=== PATIENT | female | born 1965 | race Caucasian/White ===

== ENCOUNTER → 2019-09-14 | Outpatient (CLI) | payer BC ==
[~2019-09-14] MED LIST: GADOBENATE DIMEGLUMINE 1 ML IV ONE
[2019-09-14 09:29] LABS: BLOOD UREA NITROGEN 18 mg/dL (7-26); BUN/CREATININE RATIO 19 (6-25); CREATININE, SERUM 0.93 mg/dL (0.57-1.11); EST GLOMERULAR FILTRATION RATE > 60 ML/MIN (60-)
--- NOTE | 2019-09-14 13:10 | Diagnostic Imaging Report ---
Examination: MRI BRAIN WITHOUT AND WITH CONTRAST History: Dizziness. Comparison studies: None Technique: Pre-contrast: Sagittal T2; axial T1, GRE or SWI, DWI, T2 FLAIR Post-contrast: axial, sagittal and coronal T1. Intravenous contrast: 20 mL MultiHance. Findings: Scalp: No abnormal signal. No masses. Bone marrow: Normal in signal intensity. Brain volume: Adequate for age. No volume loss. Ventricles: Asymmetric prominence of the right lateral ventricle. No hydrocephalus. Parenchyma: A single punctate area of signal abnormality in the right inferior frontal gyrus juxtacortical white matter. No masses, hemorrhage, or acute or chronic vascular insults. Extra-axial spaces: No lesion, fluid collection or hematoma. Enhancement: No abnormal enhancement. Suprasellar and sellar region: No abnormalities. Craniocervical junction: No abnormalities. The foramen magnum is patent. No Chiari malformations. Vessels: Normal flow-voids in the arteries and sinuses. Additional findings:None. IMPRESSION: No intracranial abnormalities to explain patient's symptoms. Signed by: Dr. Lubna Young M.D. on 09/14/2019 1:07 PM
== END ==
LOC: MRI 08:38
PROVIDERS: ATTEND Psychiatry & Neurology Neurology
DX: R42 Dizziness and giddiness (principal)
CPT/HCPCS: 36415; 70553; 82565; 84520; A9577

== ENCOUNTER 2019-11-30 07:34 | Observation (INO) | payer BC ==
[~2019-11-30] VITALS: Ht 175.3 cm; Wt 103.4 kg
--- OUTSIDE RECORDS SUMMARY | 2019-11-30 07:37 | XMS REPORT ---
Author Author [facility] Address Unknown Phone Unavailable Care Team Providers Care [employer] Name Role Phone DELFINA MCCANN Unavailable Unavailable Candis ORDOÑEZ Unavailable Unavailable Problems This patient has no known problems. Allergies, Adverse Reactions, Alerts This patient has no known allergies or adverse reactions. Medications This patient has no known medications. Encounters Start Date/Time End Date/Time Encounter Type Admission Type Attending Clinicians Care Facility Care Department Encounter ID 2018-11-06 15:30:00 2019-02-06 23:59:00 Outpatient C THANIA ORDOÑEZ [facility] [id number] Results Test Description Test Time Test Comments Text Results Atomic Results Result Comments MRI BRAIN WOW 2019-09-14 13:02:00 [place] [address] Patient Name: ELIAS METZ MR #: [id number] : 1965 Age/Sex: 54/F Req #: [id number] Adm Physician: Ordered by: DELFINA MCCANN MD Report #: [id number] Location: MRI Room/Bed: Procedure: [id number] MRI/MRI BRAIN WOW Exam Date: Exam Time: REPORT STATUS: Signed Examination: MRI BRAIN WITHOUT AND WITH CONTRAST History: Dizziness. Co mparison studies: None Technique: Pre-contrast: Sagittal T2; axial T1, GRE or SWI, DWI, T2 FLAIR Post-contrast: axial, sagittal and coronal T1. Intravenous contrast: 20 mL MultiHance. Findings: Scalp: No abnormal signal. No masses. Bone marrow: Normal in signal intensity. Brain volume: Adequate for age. No volume loss. Ventricles: Asymmetric prominence of the right lateral ventricle. No hydrocephalus. Parenchyma: A single punctate area of signal abnormality in the right inferior frontal gyrus juxtacortical white matter. No masses, hemorrhage, or acute or chronic vascular insults. Extra-axial spaces: No lesion, fluid collection or hematoma. Enhancement: No abnormal enhancement. Suprasellar and sellar region: No abnormalities. Craniocervical junction: No abnormalities. The foramen magnum is patent. No Chiari malformations. Vessels: Normal flow- voids in the arteries and sinuses. Additional findings:None. IMPRESSION: No intracranial abnormalities to explain patient's symptoms. Signed by: Dr. Lubna Bailey M.D. on 09/14/2019 1:07 PM Dictated By: LUBNA GRIGSBY MD [id number] Transcribed By: CRISTY on 09/14/19 130 COPY TO: DELFINA MCCANN MD
[2019-11-30] MEDS ORDERED: TRINTELLIX20 MG PO (07:44)
[2019-11-30] MEDS ORDERED: ZOLPIDEM TARTRA10 MG PO (07:44)
[2019-11-30] MEDS ORDERED: LOSARTAN POTASS50 MG PO (07:44)
[2019-11-30] MEDS ORDERED: SODIUM CHLORIDE 0.9% 1000ML 1,000 ML IV STA (07:51)
[2019-11-30] MEDS ORDERED: NITROGLYCERIN 2% OINT 1 GM PKT TOP ONE ×2 (08:00→08:15)
[2019-11-30 08:12] LABS: BASOPHILS % 0.5 % (0.0-1.0); EOSINOPHILS # (AUTO) 0.2 (0.0-0.4); EOSINOPHILS % 2.1 % (0.0-6.0); HEMATOCRIT 41.1 % (34.2-44.1); HEMOGLOBIN 13.6 g/dL (12.0-16.0); LYMPHOCYTES # (AUTO) 2.3 (1.0-3.2); LYMPHOCYTES % 27.4 % (18.0-39.1); MEAN CORPUSCULAR HEMOGLOBIN 32.1 pg (28-32); MEAN CORPUSCULAR HGB CONC 33.1 g/dL (31-35); MEAN CORPUSCULAR VOLUME 96.9 fL (81-99); MONOCYTES # (AUTO) 0.6 (0.2-0.8); NEUTROPHILS # (AUTO) 5.4 (2.1-6.9); NEUTROPHILS % 62.8 % (38.7-80.0); PLATELET COUNT 305 x10e3/uL (140-360); RED BLOOD COUNT 4.24 x10e6/uL (3.6-5.1); RED CELL DISTRIBUTION WIDTH 12.7 % (11.7-14.4)
[2019-11-30] MEDS ORDERED: KETOROLAC TROMETHAMINE 30 MG/ML VIAL IV STA (08:15)
[2019-11-30 08:25] LABS: INR 0.94; PARTIAL THROMBOPLASTIN TIME 32.1 seconds (23.8-35.5); PROTHROMBIN TIME 12.7 seconds (11.9-14.5)
[2019-11-30] MEDS ORDERED: ASPIRIN 81 MG CHEW TAB PO ONE (08:30)
[2019-11-30 08:33] LABS: ALANINE AMINOTRANSFERASE 22 IU/L (0-55); ALBUMIN 4.2 g/dL (3.5-5.0); ALBUMIN/GLOBULIN RATIO 1.4 (0.8-2.0); ALKALINE PHOSPHATASE 115 IU/L (40-150); ANION GAP 15.4 mmol/L (8-16); BLOOD UREA NITROGEN 15 mg/dL (7-26); BUN/CREATININE RATIO 20 (6-25); CALCIUM 9.3 mg/dL (8.4-10.2); CARBON DIOXIDE 22 mmol/L (22-29); CHLORIDE 106 mmol/L (98-107); CREATINE KINASE 72 IU/L (29-168); CREATININE, SERUM 0.75 mg/dL (0.57-1.11); EST GLOMERULAR FILTRATION RATE > 60 ML/MIN (60-); GLUCOSE 111 mg/dL (74-118); MAGNESIUM 2.1 MG/DL (1.3-2.1); POTASSIUM 4.4 mmol/L (3.5-5.1); SODIUM 139 mmol/L (136-145)
--- NOTE | 2019-11-30 08:35 | NUR ---
BROUGHT TO ER 9 NOW THAT CLEAN AND READY. HOSPITAL BED INTO ROOM FOR PT COMFORT, WARM BLANKETS, PILLOW, HOB ELVATED. SOCKS (FALL) YELLOW AND BELONGINGS BAG. INTRODUCTION TO ROOM. BOARD UPDATED AND GONE OVER. PT AMBULATORY TO ROOM. MEDICATED ON ARRIVAL TO ROOM. PT UPDATED ON PLAN OF CARE. PT GIVEN GOWN TO CHANGE INTO FOR ADMISSION. PT UPDATED ON ROOM STATUS WELL. PT SEEN IN TRIAGE BY DR CODY.
[2019-11-30] MEDS ORDERED: KETOROLAC TROMETHAMINE 30 MG/ML VIAL ONE (08:37)
[2019-11-30] MEDS ORDERED: ONDANSETRON HCL INJ 2MG/ML 2ML 2 MG/ML VIAL IV PRN (09:00)
--- NOTE | 2019-11-30 09:28 | Diagnostic Imaging Report ---
Chest, 1 view, 11/30/2019. History: Left-sided chest pain. Comparison: None available. Findings: The cardiomediastinal silhouette and pulmonary vasculature are within normal limits for a portable exam. There is no focal consolidation or pleural effusion. There are no acute osseous or soft tissue abnormalities. Impression: No acute cardiopulmonary abnormality. Signed by: Jim Jamison on 11/30/2019 9:25 AM
--- NOTE | 2019-11-30 09:43 | NUR ---
ECHO AT BEDSIDE BEING DONE.
[2019-11-30] MEDS: ASPIRIN 81 MG ENTERIC COATED PO SCH (09:46)
[2019-11-30 11:13] LABS: CHOL/HDL RATIO 2.7 (3.0-3.6)
--- NOTE | 2019-11-30 11:48 | NUR ---
This 54 y/o female received from the ER via w/c with recent history of chest pain. During adm process the pt. c/o pain 04/09. She denies other issues or concerns. The pt. was provided pain med for c/o pain. Dr. Castro visited the pt. in the ER.
[2019-11-30 11:57] VITALS: BP 158/93
[2019-11-30] MEDS: MORPHINE SULFATE 2 MG/ML SYR 1ML IV PRN ×2 (12:18→18:18)
[2019-11-30 12:25] VITALS: BP 158/93
[2019-11-30] MEDS: COLCHICINE 0.6 MG TAB PO SCH ×2 (14:48→21:14)
[2019-11-30] MEDS: IBUPROFEN 400 MG TAB PO SCH ×2 (14:48→21:15)
[2019-11-30] MEDS: KETOROLAC TROMETHAMINE 30 MG/ML VIAL IV PRN ×2 (14:49→21:10)
[2019-11-30 16:00] VITALS: BP 135/74
[2019-11-30 16:13] LABS: CREATINE KINASE MB 1.2 ng/mL (0-5.0)
--- NOTE | 2019-11-30 19:07 | NUR ---
RECEIVED PATIENT IN REPORT.AAOX3.FAMILY MEMBER AT BED SIDE.BED ALARM ON.BED LOCKED AND IN LOWEST POSITION.PHONE AND CALL LIGHT WITHIN REACH.INSTRUCTED TO CALL FOR ASSISTANCE NEEDED.
[2019-11-30 20:00] VITALS: BP 136/84
--- NOTE | 2019-11-30 20:36 | History and Physical ---
REASON FOR ADMISSION: Chest pain. HISTORY OF PRESENT ILLNESS: Ms. 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 Pain is worse when she moves her shoulder or worse when she lays down, worse when she takes a big breath. She has no past medical history of coronary artery disease. Not taking any prescription medications. PAST MEDICAL HISTORY: None. ALLERGIES: SULFONAMIDE, ANTIBIOTICS. SOCIAL HISTORY: The patient does not smoke or drink. She works at [employer]. MEDICATIONS: Reviewed. REVIEW OF SYSTEMS: Negative except as dictated in history of present illness. PHYSICAL EXAMINATION: VITAL SIGNS: Afebrile, heart rate 70, blood pressure is 133/81, O2 sats 91%. CARDIOVASCULAR: Regular rhythm. Pericardial rub. LUNGS: Clear to auscultation bilaterally. ABDOMEN: Soft. Bowel sounds are adequate. LABORATORY DATA: Chest x-ray shows no acute cardiopulmonary changes. Cardiac enzymes are negative. LDL is 93. Renal function is normal. ASSESSMENT: Acute pericarditis. RECOMMENDATIONS: Therapy with nonsteroidals as well as colchicine. Echocardiogram has been ordered and we will review. MD RAINE Cárdenas/BENNY /[id number]
[2019-11-30 20:50] VITALS: BP 136/84
[2019-11-30 21:24] LABS: CREATINE KINASE MB 0.9 ng/mL (0-5.0)
[2019-12-01] VITALS: BP 125/82
[2019-12-01] MEDS: MORPHINE SULFATE 2 MG/ML SYR 1ML IV PRN (00:29)
--- NOTE | 2019-12-01 00:47 | NUR ---
COMFORTABLY RESTING IN THE BED.
[2019-12-01 04:00] VITALS: BP 134/79
[2019-12-01] MEDS: KETOROLAC TROMETHAMINE 30 MG/ML VIAL IV PRN (04:31)
[2019-12-01 06:01] LABS: BASOPHILS % 0.3 % (0.0-1.0); EOSINOPHILS # (AUTO) 0.1 (0.0-0.4); EOSINOPHILS % 1.5 % (0.0-6.0); HEMATOCRIT 38.4 % (34.2-44.1); HEMOGLOBIN 12.4 g/dL (12.0-16.0); LYMPHOCYTES # (AUTO) 1.9 (1.0-3.2); LYMPHOCYTES % 27.7 % (18.0-39.1); MEAN CORPUSCULAR HEMOGLOBIN 31.6 pg (28-32); MEAN CORPUSCULAR HGB CONC 32.3 g/dL (31-35); MEAN CORPUSCULAR VOLUME 97.7 fL (81-99); MONOCYTES # (AUTO) 0.9 (0.2-0.8); MONOCYTES % 13.2 % (4.4-11.3); NEUTROPHILS # (AUTO) 3.9 (2.1-6.9); NEUTROPHILS % 57.2 % (38.7-80.0); PLATELET COUNT 245 x10e3/uL (140-360); RED BLOOD COUNT 3.93 x10e6/uL (3.6-5.1); RED CELL DISTRIBUTION WIDTH 12.8 % (11.7-14.4)
[2019-12-01 06:21] LABS: ALANINE AMINOTRANSFERASE 46 IU/L (0-55); ALBUMIN 3.6 g/dL (3.5-5.0); ALBUMIN/GLOBULIN RATIO 1.3 (0.8-2.0); ALKALINE PHOSPHATASE 98 IU/L (40-150); ANION GAP 12.1 mmol/L (8-16); BLOOD UREA NITROGEN 13 mg/dL (7-26); BUN/CREATININE RATIO 16 (6-25); CALCIUM 9.2 mg/dL (8.4-10.2); CARBON DIOXIDE 28 mmol/L (22-29); CHLORIDE 104 mmol/L (98-107); EST GLOMERULAR FILTRATION RATE > 60 ML/MIN (60-); GLUCOSE 109 mg/dL (74-118); POTASSIUM 4.1 mmol/L (3.5-5.1); SODIUM 140 mmol/L (136-145)
[2019-12-01 06:49] LABS: CREATINE KINASE MB 0.7 ng/mL (0-5.0)
--- NOTE | 2019-12-01 06:59 | NUR ---
BED SIDE SHIFT REPORT GIVEN TO ONCOMING RN.STABLE CONDITION.
--- NOTE | 2019-12-01 07:19 | NUR ---
The pt. is awake and alert and reports pain level decrease to 2/10.
[2019-12-01 08:06] VITALS: BP 118/71
[2019-12-01] MEDS: COLCHICINE 0.6 MG TAB PO SCH (08:42)
[2019-12-01] MEDS: ASPIRIN 81 MG ENTERIC COATED PO SCH (08:42)
[2019-12-01] MEDS: IBUPROFEN 400 MG TAB PO SCH (08:43)
[2019-12-01 08:52] VITALS: BP 118/71
[2019-12-01] MEDS ORDERED: COLCRYS0.6 MG PO (10:13)
--- NOTE | 2019-12-01 11:04 | NUR ---
The pt. has discharged home in stable condition. She was provided follow up,scripts and discharge instructions. She was escorted to private car in the company of her daughter.
--- NOTE | 2019-12-02 02:56 | Discharge Summary ---
DISCHARGE DIAGNOSIS: Acute pericarditis. DISCHARGE CONDITION: Stable. DISCHARGE MEDICATIONS: Ibuprofen 800 mg t.i.d. and colchicine 0.6 mg b.i.d. FOLLOWUP: Five days. HOSPITAL COURSE: Ms. Barron was admitted with severe chest pain, this is pleuritic in nature. She had a loud pericardial rub, no EKG changes, normal cardiac enzymes, normal echocardiogram, normal chest x-ray. She was given ibuprofen as well as colchicine overnight with excellent resolution of her chest pain. She has been discharged home with instructions as listed above as well as followup. MD RAINE Cárdenas/BENNY /[id number]
== END 2019-12-01 10:44 | disposition home or self-care (01) ==
LOC: ER 07:34 → ERHOLD 08:52 → MED/SURG 11:55
PROVIDERS: ADMIT Internal Medicine Interventional Cardiology; ATTEND Internal Medicine Interventional Cardiology
DX: I30.0 Acute nonspecific idiopathic pericarditis (principal); Z88.1 Allergy status to other antibiotic agents; Z88.2 Allergy status to sulfonamides; M25.512 Pain in left shoulder; I10 Essential (primary) hypertension
CPT/HCPCS: 36415 ×2; 71045; 80053 ×2; 80061; 82550 ×2; 82553 ×2; 83735; 83880; 84484 ×2; 85025 ×2; 85379; 85610; 85730; 93005; 93306; 99284; G0378 ×2; J1885 ×2; J2270 ×2; J2405; J7030

== ENCOUNTER → 2020-10-27 | Outpatient (CLI) | payer BC, OTHER ==
[~2020-10-27] MED LIST changes: +COLCRYS0.6 MG PO; +COVID-19 VACC, MRNA(MODERNA)/PF 100 MCG/0.5 ML VIAL IM ONE; -GADOBENATE DIMEGLUMINE 1 ML IV ONE; +LOSARTAN POTASS50 MG PO; +TRINTELLIX20 MG PO; +ZOLPIDEM TARTRA10 MG PO
== END ==
LOC: VACCPMC 10:32
DX: Z23 Encounter for immunization (principal); Z20.828 Contact with and (suspected) exposure to other viral communicable diseases

== ENCOUNTER → 2020-12-01 | Outpatient (CLI) | payer OTHER | LOC: VACCPMC 11:59 | DX: Z23 Encounter for immunization (principal); Z20.822 Contact with and (suspected) exposure to COVID-19 ==

== ENCOUNTER → 2021-01-05 | Outpatient (CLI) | payer OTHER ==
[~2021-01-05] MED LIST changes: -COVID-19 VACC, MRNA(MODERNA)/PF 100 MCG/0.5 ML VIAL IM ONE
[2021-01-05 11:49] LABS: BASOPHILS # (AUTO) 0.1 (0.0-0.1); BASOPHILS % 0.8 % (0.0-1.0); EOSINOPHILS # (AUTO) 0.1 (0.0-0.4); EOSINOPHILS % 1.7 % (0.0-6.0); HEMATOCRIT 40.5 % (34.2-44.1); HEMOGLOBIN 13.2 g/dL (12.0-16.0); LYMPHOCYTES # (AUTO) 2.2 (1.0-3.2); LYMPHOCYTES % 31.1 % (18.0-39.1); MEAN CORPUSCULAR HEMOGLOBIN 31.4 pg (28-32); MEAN CORPUSCULAR HGB CONC 32.6 g/dL (31-35); MEAN CORPUSCULAR VOLUME 96.4 fL (81-99); MONOCYTES # (AUTO) 0.7 (0.2-0.8); MONOCYTES % 9.1 % (4.4-11.3); NEUTROPHILS % 56.9 % (38.7-80.0); PLATELET COUNT 327 x10e3/uL (140-360); RED CELL DISTRIBUTION WIDTH 12.9 % (11.7-14.4)
[2021-01-05 11:57] LABS: CLARITY,URINE CLEAR (CLEAR); COLOR,URINE YELLOW (YELLOW); LEUKOCYTE ESTERASE ,URINE NEGATIVE (NEGATIVE); NITRITE,URINE NEGATIVE (NEGATIVE); PROTEIN,URINE DIPSTICK NEGATIVE (NEGATIVE)
[2021-01-05 11:58] LABS: KETONES,URINE NEGATIVE (NEGATIVE); URINE UROBILINOGEN 0.2 mg/dL (0.2 - 1)
[2021-01-05 12:25] LABS: ALANINE AMINOTRANSFERASE 44 IU/L (0-55); ALBUMIN 4.2 g/dL (3.5-5.0); ALKALINE PHOSPHATASE 180 IU/L (40-150); BLOOD UREA NITROGEN 24 mg/dL (7-26); BUN/CREATININE RATIO 32 (6-25); CALCIUM 9.5 mg/dL (8.4-10.2); CARBON DIOXIDE 28 mmol/L (22-29); CHLORIDE 102 mmol/L (98-107); CHOL/HDL RATIO 2.8 (3.0-3.6); CHOLESTEROL 185 MD/DL (0-199); CREATININE, SERUM 0.76 mg/dL (0.57-1.11); EST GLOMERULAR FILTRATION RATE > 60 ML/MIN (60-); GLUCOSE 100 mg/dL (74-118); HDL CHOLESTEROL 65 MG/DL (40-60); LDL CHOLESTEROL 98 MG/DL (60-130); SODIUM 139 mmol/L (136-145); TRIGLYCERIDES 112 MG/DL (0-149)
[2021-01-05 12:45] LABS: THYROID STIMULATING HORMONE 1.872 uIU/mL (0.350-4.940)
== END ==
LOC: LAB 11:22
PROVIDERS: ATTEND Family Medicine
DX: I10 Essential (primary) hypertension (principal)
CPT/HCPCS: 36415; 80053; 80061; 81003; 84443; 85025

== ENCOUNTER → 2021-08-31 | Outpatient (CLI) | payer OTHER ==
[~2021-08-31] MED LIST changes: +COVID-19 VACC, MRNA(MODERNA)/PF 100 MCG/0.5 ML VIAL IM ONE
== END ==
LOC: VACCPMC 09:31
DX: Z23 Encounter for immunization (principal); Z20.822 Contact with and (suspected) exposure to COVID-19

== ENCOUNTER → 2021-12-21 | Outpatient (CLI) | payer BC ==
[~2021-12-21] MED LIST changes: -COVID-19 VACC, MRNA(MODERNA)/PF 100 MCG/0.5 ML VIAL IM ONE
[2021-12-21 09:18] LABS: BASOPHILS # (AUTO) 0.1 (0.0-0.1); EOSINOPHILS # (AUTO) 0.2 (0.0-0.4); EOSINOPHILS % 2.8 % (0.0-6.0); HEMOGLOBIN 11.1 g/dL (12.0-16.0); LYMPHOCYTES # (AUTO) 2.6 (1.0-3.2); LYMPHOCYTES % 42.9 % (18.0-39.1); MEAN CORPUSCULAR HEMOGLOBIN 28.6 pg (28-32); MEAN CORPUSCULAR HGB CONC 30.8 g/dL (31-35); MEAN CORPUSCULAR VOLUME 92.8 fL (81-99); MONOCYTES # (AUTO) 0.7 (0.2-0.8); MONOCYTES % 10.7 % (4.4-11.3); NEUTROPHILS # (AUTO) 2.6 (2.1-6.9); NEUTROPHILS % 42.4 % (38.7-80.0); PLATELET COUNT 327 x10e3/uL (140-360); RED BLOOD COUNT 3.88 x10e6/uL (3.6-5.1)
[2021-12-21 09:43] LABS: ALBUMIN 3.9 g/dL (3.5-5.0); ALBUMIN/GLOBULIN RATIO 1.1 (0.8-2.0); ANION GAP 12.5 mmol/L (8-16); CALCIUM 9.5 mg/dL (8.4-10.2); CHOL/HDL RATIO 2.7 (3.0-3.6); CREATININE, SERUM 0.82 mg/dL (0.57-1.11); POTASSIUM 4.5 mmol/L (3.5-5.1)
[2021-12-21 09:58] LABS: CLARITY,URINE CLEAR (CLEAR); COLOR,URINE YELLOW (YELLOW); LEUKOCYTE ESTERASE ,URINE NEGATIVE (NEGATIVE); NITRITE,URINE NEGATIVE (NEGATIVE); PROTEIN,URINE DIPSTICK NEGATIVE (NEGATIVE)
[2021-12-21 09:59] LABS: BACTERIA,URINE FEW /HPF; EPITHELIAL CELLS,URINE FEW /LPF; KETONES,URINE NEGATIVE (NEGATIVE); RBC,URINE 0-5 /HPF (0-5); URINE UROBILINOGEN 0.2 mg/dL (0.2 - 1); WBC,URINE (MAN) 0-5 /HPF (0-5)
[2021-12-21 10:03] LABS: THYROID STIMULATING HORMONE 3.236 uIU/mL (0.350-4.940)
== END ==
LOC: LAB 09:00
PROVIDERS: ATTEND Family Medicine
DX: I10 Essential (primary) hypertension (principal)
CPT/HCPCS: 36415; 80053; 80061; 81001; 84443; 85025; 87086

== ENCOUNTER → 2022-08-16 | Outpatient (CLI) | payer BC | LOC: MAMMO 10:48 | PROVIDERS: ATTEND Family Medicine | DX: Z12.31 Encounter for screening mammogram for malignant neoplasm of breast (principal) | CPT/HCPCS: 77067 ==